=== PATIENT | male | born 1950 | race Caucasian/White ===

== ENCOUNTER 2017-01-07 05:34 | Inpatient (IN) | payer MEDICARE, BC ==
--- NOTE | 2016-12-29 13:36 | HP ---
HISTORY OF PRESENT ILLNESS: Mr. Cheng is a 66-year-old male who presents with low back pain on the left with numbness, tingling and intermittently travels to the left L5 dermatome. He has had this for about a year and has had [address] Machado which seemed to help some. The pain is made worse with standing and walking, made somewhat better with analgesics. He has had a history of peripheral neuropathy in the lower extremities. He has had physical therapy for his neck recent ly, but has not had any physical therapy for his lumbar spine. MRI at [facility] 2017 on CD. Static x-rays on 12/10/2015 [facility]. MRI [facility] and x-rays on [facility] on CD. REVIEW OF SYSTEMS: Ten-point review of systems complete is otherwise negative unless stated above i n the HPI. PAST MEDICAL HISTORY: Type 2 diabetes mellitus, rheumatoid arthritis, and enlarged prostate, GERD, COPD, and neuropathy. PAST SURGICAL HISTORY: Right knee scope in 2015, right carpal tunnel in 2012, right knee scope 2009 , right shoulder scope in 2008, tonsils and adenoids. HOSPITALIZATIONS: See surgeries. FAMILY HISTORY: Father is . Mother is , diagnosed with hypertension and heart dise ase and cancer. Siblings are alive. SOCIAL HISTORY: The patient is a former smoker. He quit in 1985. He is retired, , and has 3 children. MEDICATIONS: 1. Taking Namenda 10 mg tablet 1 tablet orally once daily. 2. Metoprolol succinate ER 25 mg tablet extended release 24 hour 1 tablet orally once daily. 3. Nexium 40 mg capsule delayed release 1 capsule orally once daily. 4. 20 mg capsule 1 capsule orally once daily. 5. Dutasteride 0.5 mg capsule 1 capsule orally once a day. 6. Fenofibrate 160 mg tablet 1 tablet with meal orally once a day. 7. Pioglitazone HCL 30 mg capsule orally once a day. 8. Novolin 70/30 insulin NPH isophane and regular. 9. Flonase, fluticasone proprionate 50 mcg/ACT suspension 1 spray in each nostril once a day. ALLERGIES: No known drug allergies. PHYSICAL EXAMINATION: HEENT: Normocephalic, atraumatic. Hearing intact. Moist mucous membranes. Trachea midline. EYES: Pupils are equal and reactive to light. Extraocular muscles are intact. Sclerae is white, n onicteric. PSYCHIATRIC: Normal mood and affect. CARDIOVASCULAR/CARDIOPULMONARY: No cyanosis or clubbing noted. Intact pedal pulses bilaterally. R egular rate and rhythm. RESPIRATORY: The patient bilateral symmetric chest rise. Appears to be in no shortness of breath. MUSCULOSKELETAL: Lower extremities, 5/5 strength in bilateral iliopsoas, quadriceps, hamstrings, ri ght tibialis anterior, extensor hallucis longus. Sensory deficits in the left L5 dermatome, tender to palpation at the right buttock. NEUROLOGIC: Cranial nerves II-XII are grossly intact. Speech is fluent. He answers my questions a ppropriately. The patient has normal gait and station. ASSESSMENT: 1. Lumbar radiculopathy. 2. Lumbago with sciatica, left side. 3. Chronic pain. PLAN: Since Mr. Cheng has undergone conservative therapy and has not seemed to relieve his pain pe rmanently Dr. Turner offered a L4-S1 laminectomy and L5-S1 laminectomy and T-lift. We discussed the risks, benefits, and possible complications of surgery and the patient fully understands the ris k and is willing to proceed with the surgery.
[2017-01-06 11:02] VITALS: BMI 33.3
[2017-01-07] MEDS ORDERED: Bupivacaine PF 0.5% 30 ML VIAL ONE (06:17)
[2017-01-07] MEDS ORDERED: Sodium Chloride 0.9% 20 ML ONE (06:17)
[2017-01-07] MEDS ORDERED: Thrombin 5000 UNITS/5 ML VIAL ONE (06:17)
[2017-01-07] MEDS ORDERED: CEFAZOLIN/Water 2 GM/20 ML SYRINGE ONE (06:26)
[2017-01-07 06:37] LABS: Anion Gap 14 mmol/L (10-20); BUN (Urea Nitrogen) 18 mg/dL (8.4-25.7); Calc. Creatinine Clearance 99 mL/min (70-130); Calcium 8.8 mg/dL (7.8-10.44); Carbon Dioxide 23 mmol/L (23-31); Chloride 109 mmol/L (98-107); Estimated GFR-MDRD 59
[2017-01-07] MEDS ORDERED: Fentanyl 250 MCG/5 ML VIAL ONE (06:45)
[2017-01-07] MEDS ORDERED: Ondansetron HCl/PF 4 MG/2 ML Vial ONE (07:07)
[2017-01-07] MEDS ORDERED: ePHEDrine/0.9% NaCl/PF SYRINGE 50 mg/10 ml ONE (07:07)
[2017-01-07] MEDS ORDERED: Glycopyrrolate 0.2 MG/ML 5 ML SYRINGE ONE (07:07)
[2017-01-07] MEDS ORDERED: Lidocaine 1% PF 5 ML VIAL ONE (07:07)
[2017-01-07] MEDS ORDERED: PHENYLEPHRINE-NS 100 MCG/ML 10 ML SYRINGE ONE ×4 (07:07→12:18)
[2017-01-07] MEDS ORDERED: Propofol 200 MG/20 ML VIAL ONE (07:07)
--- OUTSIDE RECORDS SUMMARY | 2017-01-07 10:35 | XMS | Continuity of Care Document ---
:1950 Author Organization [facility] Care Team Providers Name Role Phone Jayna Sutherland Primary Care Physician Unavailable Insurance Providers Payer Name Policy Number Subscriber Name Relationship MEDICARE [id number] FLORENCE COVINGTON SELF/SAME PATIENT [facility] [id number] FLORENCE COVINGTON SELF/SAME PATIENT Advance Directives Directive Response Recorded Date/Time Advance Directive? N 05/08/16 12:04pm Living Will? N 05/08/16 12:04pm Health Care Proxy? N 05/08/16 12:04pm Healthcare Power of Cord Maker? N 05/08/16 12:04pm Is the patient an Organ Donor? N 05/08/16 12:04pm Chief Complaint and Reason for Visit Reason for Visit CP Problems Active Medical Problems Problem Onset Date Recorded Date Status Chest pain Unknown 05/08/16 Active Medications No medication information available. Social History Problem Response Recorded Date Recreational drugs? N 05/08/16 Alcohol? N 05/08/16 Query Response Start Date Stop Date Smoking Status: Unknown Hospital Discharge Instructions No hospital discharge instructions. Plan of Care Discharge Date 05/08/16 Disposition HOME/SELF CARE Condition at Discharge STABLE Instructions/Education Provided DI for Chest Pain Forms Provided Discharge Form Prescriptions See Medications Section Referrals Jayna Sutherland - Additional Instructions/Education PLEASE FOLLOW UP WITH [facility] INSPECT[facility] INFORMATION GIVEN FOR DR CLAROS NEED TO SEE [facility] INSPECTOR FOR FULL CARDIAC WORKUP IN NEXT WEEK TAKE ALL MEDICATION PRESCRIBED FOLLOW UP WITH PRIMARY DOCTOR IN NEXT FEW DAYS WELL Functional Status No functional status results. Allergies, Adverse Reactions, Alerts No known allergies. Immunizations No Known History of Immunizations. Vital Signs Vital Reading Collection Date/Time Result Blood Pressure 05/08/16 5:36pm 128/68 Patient Temperature 05/08/16 5:36pm 97.4 Temperature Source 05/08/16 11:50am Tympanic Respiratory Rate 05/08/16 3:30pm 20 Pulse Rate 05/08/16 5:36pm 88 Bedside Pulse Oximetry 05/08/16 5:36pm 99 Height 05/08/16 11:50am 182.88 cm Height 05/08/16 11:50am 6 ft 0.00 in Weight 05/08/16 11:50am 117.934 kg Weight 05/08/16 11:50am 260 lb 0.00 oz Body Mass Index 05/08/16 11:50am 35.3 Results Laboratory Results Test Name Result Units Flags Reference Collection Result Comments Date/Time Date/Time Creatine 295 IU/L 49-397 05/08/16 05/08/16 Kinase 2:10pm 3:06pm Creatine 6.0 ng/ML 0.6-6.3 05/08/16 05/08/16 Kinase MB 2:10pm 3:06pm Troponin I < 0.02 ng/mL 0.00-0.03 05/08/16 05/08/16 2:10pm 3:06pm Troponin I-Interpretation Reference : <0.03 ng/mL NEGATIVE 0.04 - 0.49 ng/mL EQUIVOCAL =OR > 0.5 ng/mL CONSISTENT WITH ACUTE MYOCARDIAL INJURY 98% of confirmed AMI patients will have at least one value in a set or serial specimens >0.50 ng/ml. 99% of normals are between 0.0 - 0.10 ng/ml. Serial samples on a patient that are all <0.10 ng/ml effectively rules out AMI. Persistently increased troponin I values that are above the upper limit of normal but below the threshold for AMI indicate mycardial injury but not necessarily an ischemic mechanism of injury. Troponin Important Points 1. Troponin is specific for myocardial injury but not for AMI. Elevated troponin levels above the upper limit of normal but below the AMI cutoff may be present in cardiac injury other then AMI and represent some degree of risk. 2. Elevated troponin levels inconsistent with patient history or clinical condition should be considered a sign to investigate for other cardiac conditions. 3. Serial sampling is critical for accurate diagnosis. Myoglobin 45 ug/mL 17.4-106.0 05/08/16 05/08/16 2:10pm 3:06pm White Blood 6.7 K/uL 4.8-10.8 05/08/16 05/08/16 Count 12:45pm 1:33pm Red Blood 5.44 M/uL 4.70-6.00 05/08/16 05/08/16 Count 12:45pm 1:33pm Hemoglobin 15.2 g/dL 13.5-17.5 05/08/16 05/08/16 12:45pm 1:33pm Hematocrit 45.4 % 42.0-52.0 05/08/16 05/08/16 12:45pm 1:33pm Mean 83.4 fl 80.0-100.0 05/08/16 05/08/16 Corpuscular 12:45pm 1:33pm Volume Mean 28.0 pg 27.0-31.0 05/08/16 05/08/16 Corpuscular 12:45pm 1:33pm Hemoglobin Mean 33.5 g/dL 32.0-36.0 05/08/16 05/08/16 Corpuscular 12:45pm 1:33pm Hgb Concent Diff Red Cell 15.2 % H 11.5-14.5 05/08/16 05/08/16 Distribution 12:45pm 1:33pm Width Platelet 221 K/uL 130-400 05/08/16 05/08/16 Count 12:45pm 1:33pm Mean Platelet 8.9 fl 7.4-10.4 05/08/16 05/08/16 Volume 12:45pm 1:33pm Granulocytes 64.0 % 50.0-75.0 05/08/16 05/08/16 (%) 12:45pm 1:33pm Lymphocytes % 20.2 % 20.0-40.0 05/08/16 05/08/16 12:45pm 1:33pm Monocytes % 12.3 % 0.0-15.0 05/08/16 05/08/16 12:45pm 1:33pm Eosinophils % 2.8 % 0.0-10.0 05/08/16 05/08/16 12:45pm 1:33pm Basophils % 0.7 % 0.0-2.0 05/08/16 05/08/16 12:45pm 1:33pm Granulocytes 4.3 K/uL 1.8-6.4 05/08/16 05/08/16 # 12:45pm 1:33pm Lymphocytes # 1.4 K/uL 1.2-3.6 05/08/16 05/08/16 12:45pm 1:33pm Monocytes # 0.8 K/uL 0.3-0.9 05/08/16 05/08/16 12:45pm 1:33pm Eosinophils # 0.2 K/UL 0.0-0.5 05/08/16 05/08/16 12:45pm 1:33pm BASO # 0.0 K/UL 0.0-0.2 05/08/16 05/08/16 12:45pm 1:33pm Manual NO 05/08/16 05/08/16 Differential 12:45pm 1:33pm Prothrombin 11.1 SECONDS 10.0-12.9 05/08/16 05/08/16 Time 12:45pm 1:42pm INR 1.0 05/08/16 05/08/16 International 12:45pm 1:42pm THE INR IS TO BE USED ONLY FOR MONITORING ORAL ANTICOAGULANT Normalized THERAPY. Ratio INDICATION INR VALUE 1. Prophylaxis of venous thrombosis 2.0-3.0 (high-risk surgery) Treatment of venous thrombosis Treatment of PE Prevention of systemic embolism Tissue heart valves AMI (to prevent systemic embolism) Valvular heart disease Atrial fibrillation Bileaflet mechanical valve in aortic position 2. Mechanical prosthetic heart valves (high risk) 2.5-3.5 Thrombosis and Antiphospholipid syndrome Prevention of recurrent ND Sixth ACCP Consensus Conference on Antithrombotic Therapy, Chest 2001; 119:Supplement 8-21. D-Dimer < 200 ng/mL 0-200 05/08/16 05/08/16 The 99-100% NPV (Negative Predictive Value) for DVT/PE 12:45pm 1:42pm exclusion is <230 ng/mL as suggested by the jet operator and as approved by the FDA. Clinical correlation is needed. Sodium Level 137 mmol/L 135-144 05/08/16 05/08/16 12:45pm 2:01pm Potassium 3.9 mmol/L 3.5-5.1 05/08/16 05/08/16 Level 12:45pm 2:01pm Chloride 105 mmol/L 101-111 05/08/16 05/08/16 Level 12:45pm 2:01pm Carbon 23 mmol/L 22-32 05/08/16 05/08/16 Dioxide Level 12:45pm 2:01pm Anion Gap 12.9 mmol/L 10-20 05/08/16 05/08/16 12:45pm 2:01pm Glucose Level 163 mg/dL H 70-109 05/08/16 05/08/16 Random glucose > 200 mg/dL in a patient with typical 12:45pm 2:01pm symptoms of diabetes (polydipsia, polyuria and unexplained weight loss) satisfies ADA criteria for diabetes mellitus if confirmed by repeat testing on another day. Confirmation is unnecessary when acute metabolic decompensation with hyperglycemia is manifested. Reference: Report of the Expert Committee on the Diagnosis and Classification of Diabetes Mellitus. Diabetes Care, 20:1183, 1997. Blood Urea 16 mg/dL 8-26 05/08/16 05/08/16 Nitrogen 12:45pm 2:01pm Creatinine 1.00 mg/dL 0.61-1.24 05/08/16 05/08/16 12:45pm 2:01pm EGFR Note 98.7 59.3-175.8 05/08/16 05/08/16 eGFR (Estimated Glomerular Filtration Rate) 12:45pm 2:01pm eGFR calculation value obtained using the [facility] Quadratic (MCQ) equation. The reportable reference range is recommended to be greater than 60 ml/min/1.73m. This is an estimation of the patient's GFR and clinical correlation is recommended. This eGFR calculation does not account for race. This result may differ from other equations available. Calcium Level 9.3 mg/dL 8.9-10.3 05/08/16 05/08/16 12:45pm 2:01pm Albumin 4.3 g/dL 3.5-5.0 05/08/16 05/08/16 12:45pm 2:01pm Total 0.5 mg/dL 0.3-1.2 05/08/16 05/08/16 Bilirubin 12:45pm 2:01pm Alkaline 45 IU/L 32-91 05/08/16 05/08/16 Phosphatase 12:45pm 2:01pm Total Protein 7.5 g/dL 6.5-8.1 05/08/16 05/08/16 12:45pm 2:01pm Alanine 40 IU/L 7-55 05/08/16 05/08/16 Aminotransfer 12:45pm 2:01pm ase (ALT/SGPT) Aspartate 31 IU/L 15-41 05/08/16 05/08/16 Amino Transf 12:45pm 2:01pm (AST/SGOT) Globulin 3.2 g/dL 2.3-3.5 05/08/16 05/08/16 12:45pm 2:01pm Albumin/Globu 1.3 1.2-2.2 05/08/16 05/08/16 trace Ratio 12:45pm 2:01pm B-Type 12 pg/mL 0-100 05/08/16 05/08/16 Natriuretic 12:45pm 1:52pm Peptide White Blood 8.1 K/uL 4.8-10.8 04/22/16 04/22/16 Count 4:45pm 4:56pm Red Blood 4.96 M/uL 4.70-6.00 04/22/16 04/22/16 Count 4:45pm 4:56pm Hemoglobin 13.6 g/dL 13.5-17.5 04/22/16 04/22/16 4:45pm 4:56pm Hematocrit 41.3 % L 42.0-52.0 04/22/16 04/22/16 4:45pm 4:56pm Mean 83.3 fl 80.0-100.0 04/22/16 04/22/16 Corpuscular 4:45pm 4:56pm Volume Mean 27.4 pg 27.0-31.0 04/22/16 04/22/16 Corpuscular 4:45pm 4:56pm Hemoglobin Mean 32.9 g/dL 32.0-36.0 04/22/16 04/22/16 Corpuscular 4:45pm 4:56pm Hgb Concent Diff Red Cell 14.7 % H 11.5-14.5 04/22/16 04/22/16 Distribution 4:45pm 4:56pm Width Platelet 197 K/uL 130-400 04/22/16 04/22/16 Count 4:45pm 4:56pm Mean Platelet 8.9 fl 7.4-10.4 04/22/16 04/22/16 Volume 4:45pm 4:56pm Granulocytes 64.2 % 50.0-75.0 04/22/16 04/22/16 (%) 4:45pm 4:56pm Lymphocytes % 22.1 % 20.0-40.0 04/22/16 04/22/16 4:45pm 4:56pm Monocytes % 11.9 % 0.0-15.0 04/22/16 04/22/16 4:45pm 4:56pm Eosinophils % 1.1 % 0.0-10.0 04/22/16 04/22/16 4:45pm 4:56pm Basophils % 0.7 % 0.0-2.0 04/22/16 04/22/16 4:45pm 4:56pm Granulocytes 5.2 K/uL 1.8-6.4 04/22/16 04/22/16 # 4:45pm 4:56pm Lymphocytes # 1.8 K/uL 1.2-3.6 04/22/16 04/22/16 4:45pm 4:56pm Monocytes # 1.0 K/uL H 0.3-0.9 04/22/16 04/22/16 4:45pm 4:56pm Eosinophils # 0.1 K/UL 0.0-0.5 04/22/16 04/22/16 4:45pm 4:56pm BASO # 0.1 K/UL 0.0-0.2 04/22/16 04/22/16 4:45pm 4:56pm Manual NO 04/22/16 04/22/16 Differential 4:45pm 4:56pm Erythrocyte 22 mm/hr H 0-20 04/22/16 04/22/16 Sedimentation 4:45pm 6:02pm Rate Sodium Level 136 mmol/L 135-144 04/22/16 04/22/16 4:45pm 5:15pm Potassium 3.9 mmol/L 3.5-5.1 04/22/16 04/22/16 Level 4:45pm 5:15pm Chloride 104 mmol/L 101-111 04/22/16 04/22/16 Level 4:45pm 5:15pm Carbon 23 mmol/L 22-32 04/22/16 04/22/16 Dioxide Level 4:45pm 5:15pm Anion Gap 12.9 mmol/L 10-20 04/22/16 04/22/16 4:45pm 5:15pm Glucose Level 168 mg/dL H 70-109 04/22/16 04/22/16 Random glucose > 200 mg/dL in a patient with typical 4:45pm 5:15pm symptoms of diabetes (polydipsia, polyuria and unexplained weight loss) satisfies ADA criteria for diabetes mellitus if confirmed by repeat testing on another day. Confirmation is unnecessary when acute metabolic decompensation with hyperglycemia is manifested. Reference: Report of the Expert Committee on the Diagnosis and Classification of Diabetes Mellitus. Diabetes Care, 20:1183, 1997. Blood Urea 19 mg/dL 8-26 04/22/16 04/22/16 Nitrogen 4:45pm 5:15pm Creatinine 1.00 mg/dL 0.61-1.24 04/22/16 04/22/16 4:45pm 5:15pm EGFR Note > 60.0 04/22/16 04/22/16 eGFR (Estimated Glomerular Filtration Rate) 4:45pm 5:15pm Reference Range: >60 ml/min/1.73m eGFR calculation value obtained using the [facility] Quadratic (MCQ) equation. The reportable reference range is recommended to be greater than 60 ml/min/1.73m. This is an estimation of the patient's GFR and clinical correlation is recommended. This eGFR calculation does not account for race. This result may differ from other equations available. Calcium Level 9.4 mg/dL 8.9-10.3 04/22/16 04/22/16 4:45pm 5:15pm Albumin 4.6 g/dL 3.5-5.0 04/22/16 04/22/16 4:45pm 5:15pm Total 0.3 mg/dL 0.3-1.2 04/22/16 04/22/16 Bilirubin 4:45pm 5:15pm Alkaline 45 IU/L 32-91 04/22/16 04/22/16 Phosphatase 4:45pm 5:15pm Total Protein 7.7 g/dL 6.5-8.1 04/22/16 04/22/16 4:45pm 5:15pm Alanine 41 IU/L 7-55 04/22/16 04/22/16 Aminotransfer 4:45pm 5:15pm ase (ALT/SGPT) Aspartate 30 IU/L 15-41 04/22/16 04/22/16 Amino Transf 4:45pm 5:15pm (AST/SGOT) Globulin 3.1 g/dL 2.3-3.5 04/22/16 04/22/16 4:45pm 5:15pm Albumin/Globu 1.5 1.2-2.2 04/22/16 04/22/16 trace Ratio 4:45pm 5:15pm C-Reactive 1.0 MG/DL 0.0-1.0 04/22/16 04/22/16 Protein 4:45pm 5:15pm N/A CALCULATE 03/24/16 03/24/16 CORONARY HEART DISEASE (CHD) RISK FACTORS: BELOW 12:11pm 12:12pm +1, Age (y): Men, >45 Women, >55 or Premature Menopause Without Estrogen Therapy +1, Family History of Premature CHD +1, Current Cigarette Smoking +1, Hypertension +1, Low HDL-C: <40 mg/dL -1, High HDL-C: 60 mg/dL or More Total RFs CHD Risk Equivalents (REq): Diabetes Other Forms of Atherosclerotic Disease Lipid testing of hospitalized patients may be inaccurate due to fluctuations from the patients normal metabolic state. Accurate triglyceride and LDL testing requires a fasting specimen. If non-fasting cholesterol > gj=537 mg/dL or HDL is < 40 mg/dL, fasting lipid panel is recommended. Repeat testing recommended prior to treatment. Desirable Levels Cholesterol 239 mg/dL H 0-200 03/24/16 03/24/16 Level 12:11pm 12:39pm Triglycerides 207 mg/dL H 10-150 03/24/16 03/24/16 Normal triglycerides : <150 mg/dL Level 12:11pm 12:39pm Borderline-high triglycerides: 150-199 mg/dL High triglycerides: 200-499 mg/dL Very high triglycerides: > qi=290 mg/dL HDL 37 mg/dL L 40-130 03/24/16 03/24/16 Cholesterol 12:11pm 12:39pm N/A 6.5 H 0.0-5.0 03/24/16 03/24/16 12:11pm 12:39pm LDL 168 mg/dL H 0-130 03/24/16 03/24/16 *LDL Cholesterol <130 mg/dL, No CHD or CHD Risk Equivalent Cholesterol 12:11pm 12:39pm <100 mg/dL, With CHD or CHD Risk Equivalent (Measured) LDL Cholesterol Therapeutic Goal: 100 mg/dL or Less if CHD or CHD Risk Equivalent Present <130 mg/dL if No CHD or REq; 2 or more Risk Factors <160 mg/dL if No CHD or REq; 0-1 Risk Factors Reference: ATP III, [place], 285:62, 7063-22, 2000. Sodium Level 135 mmol/L 135-144 03/24/16 03/24/16 12:11pm 12:39pm Potassium 4.1 mmol/L 3.5-5.1 03/24/16 03/24/16 Level 12:11pm 12:39pm Chloride 103 mmol/L 101-111 03/24/16 03/24/16 Level 12:11pm 12:39pm Carbon 25 mmol/L 22-32 03/24/16 03/24/16 Dioxide Level 12:11pm 12:39pm Anion Gap 11.1 mmol/L 10-20 03/24/16 03/24/16 12:11pm 12:39pm Glucose Level 94 mg/dL 70-109 03/24/16 03/24/16 Random glucose > 200 mg /dL in a patient with typical 12:11pm 12:39pm symptoms of diabetes (polydipsia, polyuria and unexplained weight loss) satisfies ADA criteria for diabetes mellitus if confirmed by repeat testing on another day. Confirmation is unnecessary when acute metabolic decompensation with hyperglycemia is manifested. Reference: Report of the Expert Committee on the Diagnosis and Classification of Diabetes Mellitus. Diabetes Care, 20:1183, 1997. Blood Urea 14 mg/dL 8-26 03/24/16 03/24/16 Nitrogen 12:11pm 12:39pm Creatinine 1.20 mg/dL 0.61-1.24 03/24/16 03/24/16 12:11pm 12:39pm EGFR Note > 60.0 03/24/16 03/24/16 eGFR (Estimated Glomerular Filtration Rate) 12:11pm 12:39pm Reference Range: >60 ml/min/1.73m eGFR calculation value obtained using the [facility] Quadratic (MCQ) equation. The reportable reference range is recommended to be greater than 60 ml/min/1.73m. This is an estimation of the patient's GFR and clinical correlation is recommended. This eGFR calculation does not account for race. This result may differ from other equations available. Calcium Level 9.5 mg/dL 8.9-10.3 03/24/16 03/24/16 12:11pm 12:39pm Albumin 4.6 g/dL 3.5-5.0 03/24/16 03/24/16 12:11pm 12:39pm Total 0.6 mg/dL 0.3-1.2 03/24/16 03/24/16 Bilirubin 12:11pm 12:39pm Alkaline 38 IU/L 32-91 03/24/16 03/24/16 Phosphatase 12:11pm 12:39pm Total Protein 7.8 g/dL 6.5-8.1 03/24/16 03/24/16 12:11pm 12:39pm Alanine 32 IU/L 7-55 03/24/16 03/24/16 Aminotransfer 12:11pm 12:39pm ase (ALT/SGPT) Aspartate 35 IU/L 15-41 03/24/16 03/24/16 Amino Transf 12:11pm 12:39pm (AST/SGOT) Globulin 3.2 g/dL 2.3-3.5 03/24/16 03/24/16 12:11pm 12:39pm Albumin/Globu 1.4 1.2-2.2 03/24/16 03/24/16 trace Ratio 12:11pm 12:39pm Hemoglobin 5.5 % 4.0-6.0 03/24/16 03/24/16 Elevated levels of HbA1c suggest the need for more A1c Percent 12:11pm 12:42pm aggresssive treatment of glycemia. The [place] [employer] recommends that a primary goal of therapy should be a HbA1c of <7% and that physicians should reevaluate the treatment regimen in patients with HbA1c values consistently >8%. N/A 110 mg/dL 03/24/16 03/24/16 A1C Result% Estimated Avg.Glucose ( EAG) 12:11pm 12:42pm 6.0% 126 mg/dL 6.5% 140 mg/dL 7.0% 154 mg/dL 7.5% 169 mg/dL 8.0% 183 mg/dL 8.5% 197 mg/dL 9.0% 212 mg/dL 9.5% 226 mg/dL 10.0% 240 mg/dL Reference: jaki Johnson, Diabetes Care 31: 1437, 2008. Procedures No Known History of Procedures. Encounters Encounter Location Arrival/Admit Date Discharge/Depart Date Attending Provider Departed [place] 05/08/16 11:40am 05/08/16 4:15pm KRISTAL MULLEN Emergency [facility] Registered [place] 04/22/16 4:04pm ILEANA HAWKINS [facility] Registered [place] 03/24/16 11:50am Heidi Dempsey [employer] [facility] [employer] [facility] Encounter Diagnosis Chest pain
[2017-01-07] MEDS ORDERED: Morphine 2 MG/ML SYRINGE ONE ×2 (12:28→12:33)
[2017-01-07] MEDS ORDERED: Bacitracin Zinc Ointment 30 gm TUBE ONE (12:29)
[2017-01-07] MEDS ORDERED: Acetaminophen/Codeine 30-300mg Tablet PO PRN ×2 (12:37)
[2017-01-07] MEDS ORDERED: diphenhydrAMINE 50 MG/ML VIAL IVP PRN (12:37)
[2017-01-07] MEDS ORDERED: tiZANidine HCl 4 MG TAB PO PRN (12:37)
[2017-01-07] MEDS ORDERED: traMADol HCl 50 MG TAB PO PRN ×2 (12:37)
[2017-01-07] MEDS ORDERED: HYDROcodone/Acetaminophen 10/325 mg Tablet PO PRN (12:37)
[2017-01-07] MEDS ORDERED: Fentanyl 100 MCG/2 ML VIAL ONE ×4 (12:37→13:27)
[2017-01-07] MEDS ORDERED: Ondansetron HCl/PF 4 MG/2 ML Vial IVP PRN ×2 (12:37→12:56)
[2017-01-07] MEDS ORDERED: Zolpidem Tartrate 5 MG TAB PO PRN (12:37)
[2017-01-07] MEDS ORDERED: Fleet Enema 133 ML BOT PR PRN (12:37)
[2017-01-07] MEDS ORDERED: Acetaminophen 650 MG Suppository PR PRN (12:37)
[2017-01-07] MEDS ORDERED: Bisacodyl 10 MG SUPP PR PRN (12:37)
[2017-01-07] MEDS ORDERED: Mag-Al 1200 mg/1200 mg/30 ML UDCUP PO PRN (12:37)
[2017-01-07] MEDS ORDERED: diphenhydrAMINE 25 MG CAP PO PRN (12:37)
[2017-01-07] MEDS ORDERED: Acetaminophen 325 MG TAB PO PRN (12:37)
[2017-01-07] MEDS ORDERED: Milk Of Magnesia 30 ML UDCUP PO PRN (12:37)
[2017-01-07] MEDS ORDERED: Promethazine HCl 12.5 MG SUPP PR PRN (12:37)
[2017-01-07] MEDS ORDERED: Promethazine HCl 25 MG/ML VIAL SLOW IVP PRN (12:56)
[2017-01-07] MEDS ORDERED: Promethazine HCl 25 MG/ML VIAL IM PRN (12:56)
--- NOTE | 2017-01-07 13:17 | OP ---
DATE OF PROCEDURE: 01/07/2017 SURGEON: Reginald Turner M.D. IT RECRUITER: None. PREOPERATIVE INDICATION: Treat pain, prevent neurological deterioration. PREOPERATIVE DIAGNOSES: Lateral intervertebral disk herniation L5-S1 with left L5 radiculopathy, fo raminal stenosis L5-S1 with left L5 radiculopathy. POSTOPERATIVE DIAGNOSIS: Lateral intervertebral disk herniation L5-S1 with left L5 radiculopathy, f oraminal stenosis L5-S1 with left L5 radiculopathy. OPERATIVE PROCEDURE: Decompressive laminectomy, complete facetectomy, foraminotomy L5-S1, left side , transforaminal lumbar interbody arthrodesis L5-S1, placement of intervertebral biomechanical devic e L5-S1, pedicle screw and rods instrumentation L5-S1, posterolateral arthrodesis L5-S1. PREOPERATIVE MEDICATION: Ancef 2 grams IV. DRAIN NUMBER: Zero. DRAIN TYPE: None. OPERATIVE DICTATION: The patient was brought to the operating room. General endotracheal anesthesi a was induced. The patient was positioned prone on the Siddharth frame with appropriate padding for t he chest and hips. A lateral fluoro radiograph was used to plan our incision. The lumbar skin was sterilely prepped and draped. We opened with a 10 blade knife and controlled bleeding with bipolar and monopolar cautery. We used monopolar cautery to dissect through the subcutaneous tissues to the thoracodorsal fascia. We incised the fascia in the midline and reflected the paraspinal muscles of f the spinous process and lamina of L5 and S1. Self-retaining retractor was placed. A lateral fluo ro radiograph was used to confirm the levels upon which we were operating. We then carried our diss ection over the L4-5 and L5-S1 facet joints to exposed the sacral ala and the L5 transverse processe s bilaterally. Self-retaining retractors were placed. We used an Adson rongeur to remove the spino us process of L5 and left side and the lamina of L5. A complete facetectomy was done with bone viktoria eurs. Through that facetectomy, we accessed the L5-S1 foramen and the nerve was definitively compre ssed within the foramen, it was flattened before the facetectomy and had a red tint to it. I remove d disk material from around the nerve. It began to look more and more normal as time went by during the case. Through our foraminotomy, we could access the intervertebral space. We gently retracted the thecal sac medially and incised the intervertebral space with an 11 blade knife, we removed dis k contents using curets and rongeurs and prepared the endplates for grafting. We used an 11 mm rect angular shaped bone rasp, we measured the height of the interspace to 12 mm. We prepared the endpla johan with curettes. We brought a total of 12 mm PEEK intervertebral graft into the field. The jus ectomy bone was carefully morselized on the back table. Once it was cleaned of all soft tissue arelis chments. The morselized bone was added to demineralized bone matrix and this mixture was used as ar e our fusion substrate. We placed it in the center of the PEEK graft and the PEEK graft was advance d to the L5-S1 interspace to the appropriate depth with radiographic guidance. We then turned our a ttention to pedicle screw instrumentation. Using bony anatomic landmarks, palpation of the medial portion of the pedicles, and a lateral fluoro radiograph as a guide, we chose pedicle screw entry points. We drilled these out and then advanced some of the bone awl through the pedicles into the vertebral bodies. We tapped each trajectory, pr rosalina them and found them completely encased in bone. We placed 6.5 mm diameter screws into the pedi cles at L5-S1 bilaterally. A 360 degree image set was degenerated with our Isocentric C-arm. This confirmed adequate positioning of our instrumentation. We then irrigated copiously with bacitracin irrigation. We decorticated the transverse processes of L5 and the sacral ala bilaterally. Over th e decorticated bone, we left demineralized bone matrix and morselized autograft as are posterolatera l fusion substrate. We placed rods into the screw heads and tightened caps over the rods using torq [id number] mechanism, we ensured adequate tightness. Before final tightening, we applied gen tle compression across the L5-S1 interspace to keep our interbody graft in place. We then irrigated the center of the incision once again with bacitracin irrigation. We infused local anesthetic in t he paraspinal muscles. We treated the wound with vancomycin powder and we closed in anatomic layers . We applied a sterile dressing. This was a clean case and no contamination.
[2017-01-07] MEDS ORDERED: CEFAZOLIN/Water 2 GM/20 ML SYRINGE SLOW IVP SCH (14:00)
[2017-01-07] MEDS ORDERED: Scopolamine 1.5 mg/72 hour Patch TD SCH (15:00)
[2017-01-07] MEDS: Morphine 2 MG/ML SYRINGE SLOW IVP PRN ×2 (15:28→15:30)
[2017-01-07] MEDS ORDERED: HumaLOG 300 UNITS/3 ML VIAL SC PRN (16:15)
[2017-01-07] MEDS ORDERED: Dextrose 5% in Water 1,000 ML IV PRN (16:15)
[2017-01-07] MEDS ORDERED: Dextrose 50% Abboject 50 ML SYRINGE SLOW IVP PRN (16:15)
--- NOTE | 2017-01-07 16:15 | PDOC.PN ---
- Subjective Encounter Start Date: 01/07/17 Encounter Start Time: 16:13 Pt seen for management of medical comorbidities, including diabetes mellitus. Denies chest pain, reports pain at surgical site. No nausea or vomiting. - Objective MAR Reviewed: Yes Vital Signs & Weight: Weight Weight 260 lb Result Diagrams: 01/07/17 06:18 Phys Exam - Physical Examination Obese HEENT: moist MMs, sclera anicteric Neck: supple Respiratory: clear to auscultation bilateral Cardiovascular: RRR Gastrointestinal: soft, non-tender Musculoskeletal: pulses present Neurological: moves all 4 limbs Psychiatric: normal affect Dx/Plan (1) Diabetes mellitus Code(s): E11.9 - TYPE 2 DIABETES MELLITUS WITHOUT COMPLICATIONS Status: Chronic (2) Dyslipidemia Code(s): E78.5 - HYPERLIPIDEMIA, UNSPECIFIED Status: Chronic (3) GERD (gastroesophageal reflux disease) Code(s): K21.9 - GASTRO-ESOPHAGEAL REFLUX DISEASE WITHOUT ESOPHAGITIS Status: Chronic (4) Rheumatoid arthritis Code(s): M06.9 - RHEUMATOID ARTHRITIS, UNSPECIFIED Status: Chronic (5) HTN (hypertension) Code(s): I10 - ESSENTIAL (PRIMARY) HYPERTENSION Status: Chronic (6) COPD (chronic obstructive pulmonary disease) Status: Chronic - Plan plan discussed w/ family, PT/OT * . Hold Actos until pt is feeding well. Continue home insulin, start accuchecks and insulin sliding scale. Resume beta britni. Monitor vital signs, titrate antihypertensives as needed. Start PRN IV hydralazine for blood pressure spikes. continue fenofibrate. Continue PPI. s/p spine surgery. Pain management and DVT prophylaxis per neurosurgery service. Code status; Full Review of Systems - Review of Systems Constitutional: negative: Fever, Chills, Sweats, Weakness, Malaise Respiratory: negative: Cough, Dry, Shortness of Breath, Hemoptysis, SOB with Excertion, Pleuritic Pain, Sputum, Wheezing Cardiovascular: negative: Chest Pain, Palpitations, Orthopnea, Paroxysmal Noc. Dyspnea, Edema, Light Headedness - Medications/Allergies Allergies/Adverse Reactions: Allergies Allergy/AdvReac Type Severity Reaction Status Date / Time No Known Allergies Allergy Unverified 01/06/17 11:09 Medications: Current Medications Acetaminophen (Tylenol) 650 mg PO Q4H PRN PRN Reason: Headache/Fever or Pain Acetaminophen (Tylenol) 650 mg VT Q4H PRN PRN Reason: Headache/Fever or Pain Acetaminophen/Codeine Phosphate (Tylenol #3) 1 tab PO Q3H PRN PRN Reason: Mild Pain (1-3) Acetaminophen/Codeine Phosphate (Tylenol #3) 2 tab PO Q3H PRN PRN Reason: Moderate Pain (4-6) Hydrocodone Bitart/Acetaminophen ([place] 10/325) 1 tab PO Q4H PRN PRN Reason: Mild Pain (1-3) Hydrocodone Bitart/Acetaminophen ([place] 10/325) 2 tab PO Q4H PRN PRN Reason: Moderate Pain (4-6) Al Hydroxide/Mg Hydroxide (Maalox) 30 ml PO Q4H PRN PRN Reason: Indigestion Bisacodyl (Dulcolax) 10 mg VT Q12H PRN PRN Reason: Constipation Cefazolin Sodium (Ancef) 2 gm SLOW IVP Q8HR DONALD Stop: 01/08/17 06:01 Cyclobenzaprine HCl (Flexeril) 10 mg PO Q8H PRN PRN Reason: Muscle Spasm Diphenhydramine HCl (Benadryl) 25 mg IVP Q6H PRN PRN Reason: Itching Diphenhydramine HCl (Benadryl) 25 mg PO Q6H PRN PRN Reason: Itching Sodium Chloride (Normal Saline 0.9%) 1,000 mls @ 75 mls/hr IV .[id number] DONALD Magnesium Hydroxide (Milk Of Magnesium) 30 ml PO Q12H PRN PRN Reason: Constipation Morphine Sulfate (Morphine) 2 mg SLOW IVP Q1H PRN PRN Reason: Moderate Breakthrough Pain Last Admin: 01/07/17 15:30 Dose: 2 mg Morphine Sulfate (Morphine) 4 mg SLOW IVP Q1H PRN PRN Reason: Severe Breakthrough Pain Ondansetron HCl (Zofran) 4 mg IVP DAILYPRN PRN PRN Reason: Nausea Promethazine HCl (Phenergan Suppository) 12.5 mg VT Q4H PRN PRN Reason: Nausea/Vomiting Scopolamine (Transderm Scop) 1.5 mg TD Q3D@1500 DONALD Last Admin: 01/07/17 15:43 Dose: 1.5 mg Sodium Biphosphate/Sodium Phosphate (Fleet Enema) 133 ml VT ONE PRN PRN Reason: Constipation Stop: 01/09/17 12:38 Sodium Chloride (Flush - Normal Saline) 10 ml IVF PRN PRN PRN Reason: Saline Flush Sodium Chloride (Flush - Normal Saline) 10 ml IVF PRN PRN PRN Reason: Saline Flush Tamsulosin HCl (Flomax) 0.4 mg PO 0600 DONALD Tizanidine HCl (Zanaflex) 4 mg PO Q6H PRN PRN Reason: Muscle Spasm Tramadol HCl (Ultram) 50 mg PO Q6H PRN PRN Reason: Mild Pain (1-3) Tramadol HCl (Ultram) 100 mg PO Q6H PRN PRN Reason: Moderate Pain (4-6) Zolpidem Tartrate (Ambien) 5 mg PO HSPRN PRN PRN Reason: Insomnia
[2017-01-07] MEDS ORDERED: hydrALAZINE 20 MG/ML VIAL SLOW IVP PRN (16:16)
[2017-01-07] MEDS: HYDROcodone/Acetaminophen 10/325 mg Tablet PO PRN ×2 (17:06→20:42)
[2017-01-07] MEDS: Cyclobenzaprine 10 MG TAB PO PRN (17:07)
[2017-01-07] MEDS: Sodium Chloride 0.9% 1,000 ML IV SCH ×2 (17:27→21:04)
[2017-01-07] MEDS ORDERED: FLU VACC TS2017-18 (>65YR) 0.5 ML SYRINGE IM ONE (18:30)
[2017-01-07] MEDS: Insulin NPH/Reg Insulin Hm 300 UNITS/3 ML VIAL SC SCH (20:40)
[2017-01-07] MEDS: CEFAZOLIN/Water 2 GM/20 ML SYRINGE SLOW IVP SCH (20:41)
[2017-01-08] MEDS: HYDROcodone/Acetaminophen 10/325 mg Tablet PO PRN ×3 (03:05→12:16)
[2017-01-08] MEDS: Cyclobenzaprine 10 MG TAB PO PRN (03:05)
[2017-01-08] MEDS: CEFAZOLIN/Water 2 GM/20 ML SYRINGE SLOW IVP SCH ×2 (03:05→11:57)
[2017-01-08] MEDS ORDERED: Tamsulosin HCl 0.4 MG CAP PO SCH ×2 (06:00→09:00)
[2017-01-08] MEDS ORDERED: Fluticasone Propionate Nasal Spray 16 gm Bottle NASAL SCH (09:00)
[2017-01-08] MEDS ORDERED: Leflunomide 10 mg Tablet PO SCH (09:00)
[2017-01-08] MEDS ORDERED: Dutasteride 0.5 MG CAP PO SCH (09:00)
[2017-01-08] MEDS ORDERED: FLU VACC TS2017-18 (>65YR) 0.5 ML SYRINGE IM ONE (09:30)
[2017-01-08] MEDS: Insulin NPH/Reg Insulin Hm 300 UNITS/3 ML VIAL SC SCH (09:31)
--- NOTE | 2017-01-08 09:35 | PDOC.PN ---
- Subjective Encounter Start Date: 01/08/17 Encounter Start Time: 07:00 -: old records requested/rev Patient seen and examined. No new complaints. No overnight events - Objective MAR Reviewed: Yes Vital Signs & Weight: Vital Signs (12 hours) Temp Pulse Resp BP BP BP Pulse Ox 01/08/17 07:42 99.4 F 88 18 122/73 95 01/08/17 04:36 97.9 F 84 18 131/78 97 01/08/17 00:30 98.0 F 83 16 118/70 95 Weight Weight 260 lb I&O: 01/07/17 01/08/17 01/09/17 06:59 06:59 06:59 Intake Total 1360 Balance 1360 Result Diagrams: 01/07/17 06:18 Additional Labs: Accuchecks 01/08/17 01/07/17 01/07/17 06:24 20:50 12:01 POC Glucose 108 117 H 101 01/07/17 01/07/17 10:19 08:22 POC Glucose 93 87 Phys Exam - Physical Examination Constitutional: NAD HEENT: PERRLA, moist MMs, sclera anicteric Neck: no JVD, supple Respiratory: no wheezing, no rales, no rhonchi Cardiovascular: RRR, no significant murmur, no rub Gastrointestinal: soft, non-tender, no distention, positive bowel sounds Musculoskeletal: no edema, pulses present Neurological: non-focal, normal sensation, moves all 4 limbs Lymphatic: no nodes Psychiatric: normal affect, A&O x 3 Skin: no rash, normal turgor Dx/Plan (1) S/P lumbar laminectomy Code(s): Z98.890 - OTHER SPECIFIED POSTPROCEDURAL STATES Status: Acute (2) COPD (chronic obstructive pulmonary disease) Status: Chronic (3) Diabetes mellitus Code(s): E11.9 - TYPE 2 DIABETES MELLITUS WITHOUT COMPLICATIONS Status: Chronic (4) Dyslipidemia Code(s): E78.5 - HYPERLIPIDEMIA, UNSPECIFIED Status: Chronic (5) GERD (gastroesophageal reflux disease) Code(s): K21.9 - GASTRO-ESOPHAGEAL REFLUX DISEASE WITHOUT ESOPHAGITIS Status: Chronic (6) HTN (hypertension) Code(s): I10 - ESSENTIAL (PRIMARY) HYPERTENSION Status: Chronic (7) Obesity (BMI 30.0-34.9) Code(s): E66.9 - OBESITY, UNSPECIFIED Status: Chronic (8) Rheumatoid arthritis Code(s): M06.9 - RHEUMATOID ARTHRITIS, UNSPECIFIED Status: Chronic - Plan cont current plan of care, plan discussed w/ family, PT/OT * pt is ambulatory * pain controlled * medically stable * possible discharge later today * medication reviewed as below * symptomatic treatment. Review of Systems - Review of Systems ENT: negative: Ear Pain, Ear Discharge, Nose Pain, Nose Discharge, Nose Congestion, Mouth Pain, Mouth Swelling, Throat Pain, Throat Swelling, Other Respiratory: negative: Cough, Dry, Shortness of Breath, Hemoptysis, SOB with Excertion, Pleuritic Pain, Sputum, Wheezing Cardiovascular: negative: Chest Pain, Palpitations, Orthopnea, Paroxysmal Noc. Dyspnea, Edema, Light Headedness, Other Gastrointestinal: negative: Nausea, Vomiting, Abdominal Pain, Diarrhea, Constipation, Melena, Hematochezia, Other Genitourinary: negative: Dysuria, Frequency, Incontinence, Hematuria, Retention , Other Musculoskeletal: negative: Neck Pain, Shoulder Pain, Arm Pain, Back Pain, Hand Pain, Leg Pain, Foot Pain, Other Skin: negative: Rash, Lesions, Alfred, Bruising, Other - Medications/Allergies Allergies/Adverse Reactions: Allergies Allergy/AdvReac Type Severity Reaction Status Date / Time No Known Allergies Allergy Unverified 01/06/17 11:09 Medications: Current Medications Acetaminophen (Tylenol) 650 mg PO Q4H PRN PRN Reason: Headache/Fever or Pain Acetaminophen (Tylenol) 650 mg MS Q4H PRN PRN Reason: Headache/Fever or Pain Acetaminophen/Codeine Phosphate (Tylenol #3) 1 tab PO Q3H PRN PRN Reason: Mild Pain (1-3) Acetaminophen/Codeine Phosphate (Tylenol #3) 2 tab PO Q3H PRN PRN Reason: Moderate Pain (4-6) Hydrocodone Bitart/Acetaminophen ([place] 10/325) 1 tab PO Q4H PRN PRN Reason: Mild Pain (1-3) Hydrocodone Bitart/Acetaminophen ([place] 10/325) 2 tab PO Q4H PRN PRN Reason: Moderate Pain (4-6) Last Admin: 01/08/17 07:43 Dose: 2 tab Al Hydroxide/Mg Hydroxide (Maalox) 30 ml PO Q4H PRN PRN Reason: Indigestion Bisacodyl (Dulcolax) 10 mg MS Q12H PRN PRN Reason: Constipation Cefazolin Sodium (Ancef) 2 gm SLOW IVP 0400,1200,2000 [facility] Stop: 01/08/17 12:01 Last Admin: 01/08/17 03:05 Dose: 2 gm Cyclobenzaprine HCl (Flexeril) 10 mg PO Q8H PRN PRN Reason: Muscle Spasm Last Admin: 01/08/17 03:05 Dose: 10 mg Dextrose/Water (Dextrose 50%) 25 gm SLOW IVP PRN PRN PRN Reason: Hypoglycemia Diphenhydramine HCl (Benadryl) 25 mg IVP Q6H PRN PRN Reason: Itching Diphenhydramine HCl (Benadryl) 25 mg PO Q6H PRN PRN Reason: Itching Dutasteride (Avodart) 0.5 mg PO DAILY [facility] Fenofibrate (Tricor) 192 mg PO DAILY [facility] Fluticasone Propionate (Flonase Nasal [place]) 0 gm NASAL DAILY [facility] Glucagon (Glucagon) 1 mg IM PRN PRN PRN Reason: Hypoglycemia Hydralazine HCl (Apresoline) 10 mg SLOW IVP Q6H PRN PRN Reason: SBP Greater Than 170 Sodium Chloride (Normal Saline 0.9%) 1,000 mls @ 75 mls/hr IV .[id number] [facility] Last Admin: 01/07/17 21:04 Dose: Not Given Dextrose/Water (D5w) 1,000 mls @ 0 mls/hr IV .Q0M PRN; As Directed PRN Reason: Hypoglycemia Insulin Human Isoph/Insulin Regular (Humulin 70/30) 30 units SC BID [facility] Last Admin: 01/07/17 20:40 Dose: 30 unit Insulin Human Lispro (Humalog) 0 units SC .MILD SLIDING SCALE PRN PRN Reason: Mild Correctional Scale Leflunomide (Arava) 20 mg PO DAILY [facility] Magnesium Hydroxide (Milk Of Magnesium) 30 ml PO Q12H PRN PRN Reason: Constipation Memantine (Namenda) 10 mg PO BID [facility] Last Admin: 01/07/17 20:41 Dose: 10 mg Metoprolol Succinate (Toprol Xl) 25 mg PO DAILY [facility] Morphine Sulfate (Morphine) 2 mg SLOW IVP Q1H PRN PRN Reason: Moderate Breakthrough Pain Last Admin: 01/07/17 15:30 Dose: 2 mg Morphine Sulfate (Morphine) 4 mg SLOW IVP Q1H PRN PRN Reason: Severe Breakthrough Pain Ondansetron HCl (Zofran) 4 mg IVP DAILYPRN PRN PRN Reason: Nausea Pantoprazole Sodium (Protonix) 40 mg PO DAILY [facility] Promethazine HCl (Phenergan Suppository) 12.5 mg MS Q4H PRN PRN Reason: Nausea/Vomiting Scopolamine (Transderm Scop) 1.5 mg TD Q3D@1500 [facility] Last Admin: 01/07/17 15:43 Dose: 1.5 mg Sodium Biphosphate/Sodium Phosphate (Fleet Enema) 133 ml MS ONE PRN PRN Reason: Constipation Stop: 01/09/17 12:38 Sodium Chloride (Flush - Normal Saline) 10 ml IVF PRN PRN PRN Reason: Saline Flush Sodium Chloride (Flush - Normal Saline) 10 ml IVF PRN PRN PRN Reason: Saline Flush Tamsulosin HCl (Flomax) 0.4 mg PO 0600 [facility] Last Admin: 01/08/17 06:02 Dose: 0.4 mg Tamsulosin HCl (Flomax) 0.4 mg PO DAILY [facility] Tizanidine HCl (Zanaflex) 4 mg PO Q6H PRN PRN Reason: Muscle Spasm Tramadol HCl (Ultram) 50 mg PO Q6H PRN PRN Reason: Mild Pain (1-3) Tramadol HCl (Ultram) 100 mg PO Q6H PRN PRN Reason: Moderate Pain (4-6) Zolpidem Tartrate (Ambien) 5 mg PO HSPRN PRN PRN Reason: Insomnia
[2017-01-08 11:40] VITALS: BP 136/77; TEMP 98.6
--- NOTE | 2017-01-08 12:00 | DIS ---
DATE OF ADMISSION: 01/07/2017 DATE OF DISCHARGE: 01/08/2017 PRIMARY CARE PHYSICIAN: Dr. Ena Olmos. DISCHARGE DISPOSITION: Home. PRIMARY DISCHARGE DIAGNOSIS: Status post lumbar laminectomy. SECONDARY DISCHARGE DIAGNOSES: 1. Chronic obstructive pulmonary disease. 2. Diabetes type 2. 3. Dyslipidemia. 4. Gastroesophageal reflux disease. 5. Hypertension. 6. Obesity. 7. Rheumatoid arthritis. PRIMARY PROCEDURE/OPERATION: Dr. Turner did decompressive laminectomy, fasciectomy, foraminectom y. RADIOLOGICAL INVESTIGATION: None. SIGNIFICANT LABORATORY DATA: Sodium 142, potassium 3.8, BUN 18, creatinine 1.22, calcium 8.8. DISCHARGE MEDICATIONS: The patient will continue all his previous medications, Keflex 500 mg p.o. q .i.d., Avodart 0.5 mg p.o. daily, Nexium 40 mg p.o. daily, TriCor 200 mg p.o. daily, Flonase nasal s pray daily, insulin 70/30, 30 units subcu b.i.d. Arava 20 mg p.o. daily, Namenda 10 mg p.o. b.i.d., metoprolol succinate 25 mg p.o. daily, Actos 30 mg p.o. b.i.d., Flomax 0.4 mg p.o. daily, and oxycod one one tablet q.6 hourly p.r.n. CONTRAINDICATIONS: None. CODE STATUS: FULL CODE. INPATIENT CONSULTANTS: Dr. Turner was primary, Sound team was consulted for medical management. TEST RESULTS PENDING ON DISCHARGE: None. ALLERGIES: No known drug allergies. DISCHARGE PLAN: Post hospital, the patient will follow up with Dr. Turner and Dr. Sutherland as in structed. HOSPITAL COURSE: A 66-year-old male who was electively admitted by Dr. Turner. The patient unde rwent decompressive laminectomy, foraminectomy, and fasciectomy. Subsequently at surgical floor, So und team was consulted for medical management. The patient's all medical problems remained stable. We had continued the patient's home medication while in hospital as well as on discharge today. To day, the patient is planned for discharge by the primary team. While in hospital, he did very well after surgery. He was able to ambulate by himself. His pain was controlled. The patient is seen and examined at bedside today. Please see my progress note from today for furth er details. We will sign off.
== END 2017-01-08 13:39 | disposition home or self-care (01) | DRG 460 ==
LOC: SURG A 05:34 → EDSTATUS 15:51
PROVIDERS: ADMIT Neurological Surgery; ATTEND Neurological Surgery
PROC: 0SG00AJ Fusion of Lumbar Vertebral Joint with Interbody Fusion Device, Posterior Approach, Anterior Column, Open Approach (ICD-10-PCS; principal; 2017-01-07)
DX: M51.16 Intervertebral disc disorders with radiculopathy, lumbar region (principal); E11.8 Type 2 diabetes mellitus with unspecified complications; J44.9 Chronic obstructive pulmonary disease, unspecified; M54.42 Lumbago with sciatica, left side; M06.9 Rheumatoid arthritis, unspecified; K21.9 Gastro-esophageal reflux disease without esophagitis; Z87.891 Personal history of nicotine dependence; Z23 Encounter for immunization; M48.061 Spinal stenosis, lumbar region without neurogenic claudication; E78.5 Hyperlipidemia, unspecified; I10 Essential (primary) hypertension; E66.9 Obesity, unspecified; Z68.30 Body mass index [BMI] 30.0-30.9, adult
CPT/HCPCS: 36415; 36416; 76001; 80048; 90471; 90682; A4216; C1713; C1768; G0008; G8978-GP-CJ; G8979-GP-CI; J2001; J2270; J2405; J2704; J3010; J3370; J3490; Q2036; S0020